=== PATIENT | female | born 1955 | race Caucasian/White ===

== ENCOUNTER 2018-02-02 08:42 | Day surgery (SDC) | payer OTHER ==
[~2018-02-02] VITALS: Ht 170.2 cm; Wt 104.3 kg
[2018-02-02] MEDS ORDERED: LR 1,000 ML IV SCH (11:21)
[2018-02-02] MEDS ORDERED: METOCLOPRAMIDE HCL 10 MG/2 ML VIAL IVP PRN (11:30)
[2018-02-02] MEDS ORDERED: MORPHINE 4 MG/ML INJ. SYRINGE IVP PRN ×3 (11:30)
[2018-02-02] MEDS ORDERED: LR 1,000 ML IV.SOLN IV ONE (11:55)
[2018-02-02] MEDS ORDERED: NS IRRIG SOLN 1000 ML IR ONE (11:55)
[2018-02-02] MEDS ORDERED: ONDANSETRON HCL 4 MG/2 ML VIAL ONE (11:55)
[2018-02-02] MEDS ORDERED: MIDAZOLAM HCL 5 MG/ML VIAL (VERSED) IV ONE (11:55)
[2018-02-02] MEDS ORDERED: MIVACURIUM CHLORIDE 20 MG/10 ML VIAL (MIVACRON) INJ ONE (11:55)
[2018-02-02] MEDS ORDERED: fentaNYL CITRATE/PF 100 MCG/2 ML AMP ONE (11:55)
[2018-02-02] MEDS ORDERED: CLINDAMYCIN PHOSPHATE 900 mg/50mL D5W IV ONE (11:55)
[2018-02-02] MEDS ORDERED: PROPOFOL 200MG/ 20ML VIAL (DIPRIVAN) IV ONE (11:55)
[2018-02-02] MEDS ORDERED: SEVOFLURANE 15 MIN GAS INH ONE (11:55)
[2018-02-02] MEDS ORDERED: ACETAMINOPHEN/CODEINE 300 MG-30 MG TABLET PO PRN (12:00)
[2018-02-02 13:30] VITALS: BP_SYST 103
== END 2018-02-02 14:00 | disposition home or self-care (01) ==
LOC: SMU 08:42 → SDS 08:42
PROVIDERS: ATTEND Otolaryngology Plastic Surgery within the Head & Neck
DX: L57.8 Other skin changes due to chronic exposure to nonionizing radiation (principal); I10 Essential (primary) hypertension; E66.3 Overweight; E78.5 Hyperlipidemia, unspecified; Z98.890 Other specified postprocedural states; Z88.0 Allergy status to penicillin; Z90.710 Acquired absence of both cervix and uterus; Z79.899 Other long term (current) drug therapy; Z88.1 Allergy status to other antibiotic agents
CPT/HCPCS: 11443; 15260; 88305; J2250; J2405; J2704; J3010; J3490; J7120